=== PATIENT | male | born 1995 | race Caucasian/White ===

== ENCOUNTER 2024-06-11 18:40 | Emergency (ER) | payer OTHER ==
[~2024-06-11] VITALS: Ht 193 cm; Wt 156.5 kg
[2024-06-11 19:32] LABS: BASOPHILS # (AUTO) 0.04 K/uL (0.00-0.20); BASOPHILS % (AUTO) 0.6 % (0.0-5.0); EOSINOPHILS # (AUTO) 0.09 K/uL (0.00-0.70); EOSINOPHILS % (AUTO) 1.3 % (0.0-8.0); HEMATOCRIT 41.8 % (42-54); IMMATURE GRANULOCYTE ABSOLUTE 0.04 K/uL (0-1); LYMPHOCYTES # (AUTO) 2.7 K/uL (1.0-4.8); LYMPHOCYTES % (AUTO) 40.6 % (21.0-51.0); MEAN CORPUSCULAR HEMOGLOBIN 26.9 pg (27.0-33.0); MEAN CORPUSCULAR HGB CONC 33.3 g/dL (32.0-36.0); MEAN CORPUSCULAR VOLUME 80.9 fL (79-99); MONOCYTES # (AUTO) 0.6 K/uL (0.1-1.0); MONOCYTES % (AUTO) 8.9 % (3.0-13.0); NEUTROPHILS # (AUTO) 3.2 K/uL (1.8-7.7); PLATELET COUNT (AUTO) 209 K/uL (130-400); RED BLOOD CELL COUNT(AUTO) 5.17 MIL/uL (4.50-6.20); RED CELL DISTRIBUTION WIDTH 12.5 % (11.0-15.5); WHITE BLOOD COUNT (AUTO) 6.8 K/uL (4.8-10.8)
[2024-06-11 19:47] LABS: POTASSIUM 4.5 mmol/L (3.5-5.1)
[2024-06-11 19:58] LABS: B-TYPE NATRIURETIC PEPTIDE < 5 pg/mL (0-100)
[2024-06-11 19:59] VITALS: BP 111/92; PULSE 80; RESP 16; TEMP 98.3; O2SAT 98
[2024-06-11] MEDS ORDERED: LORA10TA7 PO (20:48)
== END 2024-06-11 21:04 | disposition home or self-care (01) ==
LOC: EDH 18:40
DX: R60.0 Localized edema (principal); L25.9 Unspecified contact dermatitis, unspecified cause; E87.1 Hypo-osmolality and hyponatremia; I10 Essential (primary) hypertension; E78.00 Pure hypercholesterolemia, unspecified; F41.9 Anxiety disorder, unspecified; F32.A Depression, unspecified
CPT/HCPCS: 36415; 71045; 80048; 82550; 83880; 84484; 85025; 93005; 93970